=== PATIENT | female | born 1995 | race Caucasian/White ===

== ENCOUNTER 2017-01-21 05:21 | Emergency (ER) | payer BC, OTHER ==
[~2017-01-21] VITALS: Ht 162.6 cm; Wt 112.0 kg
[~2017-01-21 05:21] MED LIST: BCPILLS PO; PARO1TAB27 PO
[2017-01-21 05:24] VITALS: TEMP 36.7; Ht 162.6 cm; Wt 112.0 kg
[2017-01-21] MEDS ORDERED: ONDANSETRON INJ 2 MG/ML 2 ML VIAL IV STA (05:36)
[2017-01-21] MEDS ORDERED: ALBUT/IPRATROP 3MG/0.5MG NEB 3 ML VIAL INH STA (05:36)
[2017-01-21] MEDS ORDERED: PARO10TA PO (05:53)
[2017-01-21] MEDS ORDERED: NAPR1TAB9 PO (05:53)
[2017-01-21] MEDS ORDERED: PXL/40 PO (05:53)
[2017-01-21] MEDS ORDERED: ACET-1256 PO (05:53)
[2017-01-21 06:08] LABS: BASO % 0.4 %; BASO ABS # 0.03 K/uL (0-0.2); COMPLETE YES; EOS % 6.4 %; HEMATOCRIT 41.8 % (37-47); IG% 0.1 %; LYMPH % 33.1 %; LYMPH ABS # 2.62 K/uL (1.2-3.4); MEAN CELL VOLUME 86.2 fL (80-100); MEAN CORPUSCULAR HEMOGLOBIN 29.1 pg (25-34); MEAN CORPUSCULAR HGB CONC 33.7 g/dl (32-36); MEAN PLATELET VOLUME 8.7 fL (7.4-10.4); MONO % 6.2 %; NEUT % 53.8 %; PLATELET COUNT 319 K/uL (130-400); RED BLOOD COUNT 4.85 M/uL (4.2-5.4); WHITE BLOOD COUNT 7.91 K/uL (4.8-10.8)
[2017-01-21 06:27] LABS: BLOOD UREA NITROGEN 11 mg/dl (7-18); BUN/CREATININE RATIO 12.4 (10-20); CALCIUM 9.1 mg/dl (8.5-10.1); CARBON DIOXIDE 27 mmol/L (21-32); CHLORIDE 107 mmol/L (98-107); CREATININE 0.87 mg/dl (0.60-1.20); GLUCOSE 107 mg/dl (70-99); POTASSIUM 3.7 mmol/L (3.5-5.1); SODIUM 142 mmol/L (136-145)
[2017-01-21 06:34] LABS: PREG INTERNAL NEGATIVE QC NEG CLEAR BACKGROUND; PREG INTERNAL POSITIVE QC POS CONTROL LINE
--- NOTE | 2017-01-21 06:45 | DIAGNOSTIC IMAGING REPORT ---
CHEST 2 VIEWS ROUTINE HISTORY: 21-year-old female presents with cough, chest pain, shortness of breath and dizziness. COMPARISON: Portable chest radiograph 01/25/2016. TECHNIQUE: Frontal and lateral views of the chest. FINDINGS: Cardiomediastinal and hilar silhouettes are within normal limits. There is no pneumothorax, pleural effusion or focal airspace consolidation. The bones are grossly intact. IMPRESSION: No acute cardiopulmonary process. Electronically signed by: Clayton Banegas 01/21/2017 6:43 AM Dictated Date/Time: 01/21/2017 6:42 AM
--- NOTE | 2017-01-21 07:08 | EMERGENCY ROOM VISIT NOTE ---
History First contact with patient: 05:31 Chief Complaint: COUGH Stated Complaint: COUGH Nursing Triage Summary: Pt states she developed a cough January 18. Noted worsening bilateral rib and midsternal CP this morning. History of Present Illness The patient is a 21 year old female who presents to the Emergency Room with complaints of chest pain. The patient states that she has a history of asthma and has had a cough for the past 3 days. Today, the patient developed pain in the back of her ribs in the center of her chest. She is days it is a burning pain and she has associated vomiting. She has had a headache associated with a cough. She used her Ventolin inhaler without relief. She rates her discomfort a 4/10. She denies aggravating or alleviating factors. She denies any cardiac history or history of blood clots. She does not smoke. Review of Systems A complete 10 point review of systems was reviewed with the patient with pertinent positives and negatives as per history of present illness. All else were negative. Past Medical/Surgical History Medical Problems: (1) Asthma exacerbation Family History Patient reports no known family medical history. Social History Smoking Status: Never Smoker Drug Use: none Marital Status: single Current/Historical Medications Scheduled Control Pills ( Control Pills), 1 TAB PO QPM Paroxetine (Paxil), 40 MG PO DAILY Paroxetine Hcl (Paxil), 10 MG PO DAILY Scheduled PRN Acetaminophen (Tylenol), 1,000 MG PO DIRECTED PRN for Pain or Fever Naproxen (Aleve), 220 MG PO DIRECTED PRN for Pain Allergies Coded Allergies: No Known Allergies (Unverified , 01/21/17) Physical Exam Vital Signs Date Time Temp Pulse Resp B/P (MAP) Pulse Ox O2 Delivery O2 Flow Rate FiO2 01/21/17 07:26 84 16 138/94 98 01/21/17 06:04 87 18 126/97 96 Room Air 01/21/17 05:31 98 Room Air 01/21/17 05:27 86 01/21/17 05:24 36.7 90 20 138/98 98 Room Air Physical Exam VITALS: Vitals are noted on the nurse's note and reviewed by myself. Vital signs stable. GENERAL: This is a 21-year-old female, in no acute distress, nondiaphoretic, well-developed well-nourished. HEENT: Normocephalic. PERRLA. EOMI. Nares patent. Mucous membranes moist. Neck is supple without nuchal rigidity. HEART: Regular rate and rhythm without murmurs gallops or rubs. LUNGS: Clear to auscultation bilaterally without wheezes, rales or rhonchi. No retractions or accessory muscle use. ABDOMEN: Positive bowel sounds x 4. Soft, nontender to palpation. CHEST: No reproducible tenderness. NEURO: Patient was alert and oriented to person place and time. Medical Decision & Procedures ER Provider Diagnostic Interpretation: CHEST 2 VIEWS ROUTINE FINDINGS: Cardiomediastinal and hilar silhouettes are within normal limits. There is no pneumothorax, pleural effusion or focal airspace consolidation. The bones are grossly intact. IMPRESSION: No acute cardiopulmonary process. Laboratory Results 01/21/17 05:55 Red Blood Count 4.85, Mean Corpuscular Volume 86.2, Mean Corpuscular Hemoglobin 29.1, Mean Corpuscular Hemoglobin Concent 33.7, Mean Platelet Volume 8.7, Neutrophils (%) (Auto) 53.8, Lymphocytes (%) (Auto) 33.1, Monocytes (%) (Auto) 6.2, Eosinophils (%) (Auto) 6.4, Basophils (%) (Auto) 0.4, Neutrophils # (Auto) 4.25, Lymphocytes # (Auto) 2.62, Monocytes # (Auto) 0.49, Eosinophils # (Auto) 0.51, Basophils # (Auto) 0.03 01/21/17 05:55 Test 01/21/17 05:55 White Blood Count 7.91 K/uL (4.8-10.8) Red Blood Count 4.85 M/uL (4.2-5.4) Hemoglobin 14.1 g/dL (12.0-16.0) Hematocrit 41.8 % (37-47) Mean Corpuscular Volume 86.2 fL (80-100) Mean Corpuscular Hemoglobin 29.1 pg (25-34) Mean Corpuscular Hemoglobin Concent 33.7 g/dl (32-36) Platelet Count 319 K/uL (130-400) Mean Platelet Volume 8.7 fL (7.4-10.4) Neutrophils (%) (Auto) 53.8 % Lymphocytes (%) (Auto) 33.1 % Monocytes (%) (Auto) 6.2 % Eosinophils (%) (Auto) 6.4 % Basophils (%) (Auto) 0.4 % Neutrophils # (Auto) 4.25 K/uL (1.4-6.5) Lymphocytes # (Auto) 2.62 K/uL (1.2-3.4) Monocytes # (Auto) 0.49 K/uL (0.11-0.59) Eosinophils # (Auto) 0.51 K/uL (0-0.5) Basophils # (Auto) 0.03 K/uL (0-0.2) RDW Standard Deviation 41.2 fL (36.4-46.3) RDW Coefficient of Variation 12.9 % (11.5-14.5) Immature Granulocyte % (Auto) 0.1 % Immature Granulocyte # (Auto) 0.01 K/uL (0.00-0.02) D-Dimer 390 ug/L FEU (0-500) Anion Gap 8.0 mmol/L (3-11) Est Creatinine Clear Calc Drug Dose 125.4 ml/min Estimated GFR () 110.4 Estimated GFR (Non- 95.2 BUN/Creatinine Ratio 12.4 (10-20) Calcium Level 9.1 mg/dl (8.5-10.1) Troponin I < 0.015 ng/ml (0-0.045) Human Chorionic Gonadotropin, Qual NEG (NEG) Medications Administered Medications (Trade) Dose Ordered Sig/Wenceslao Route Start Time Stop Time Status Last Admin Dose Admin Albuterol/ Ipratropium (Duoneb) 3 ml NOW STAT INH 01/21/17 05:36 01/21/17 05:39 DC 01/21/17 05:43 3 ML Ondansetron HCl (Zofran Inj) 4 mg NOW STAT IV 01/21/17 05:36 01/21/17 05:39 DC 01/21/17 06:03 4 MG ECG Rate (beats per minute): 77 Rhythm: normal sinus Findings: no acute ischemic change, no ectopy Comparison ECG Date: no prior available ED Course The patient was evaluated as above. Labs were drawn and IV access was obtained. Patient was medicated with 4 mg Zofran and a DuoNeb treatment. Chest x-ray was performed and read by radiology as above. Patient was reevaluated and felt better. Findings were discussed with the patient. Discharge instructions were reviewed with the patient. The patient verbalized understanding of my assessment and treatment plan and was discharged home in good condition. Medical Decision Differential diagnosis includes pneumonia, pulmonary embolism, upper respiratory infection, asthma exacerbation, among others. The patient is a 21-year-old female who presents today complaining of cough and substernal chest pain. Labs revealed no leukocytosis or anemia. No concerning electrolyte abnormalities. Troponin and d-dimer were both negative. EKG shows a normal sinus rhythm without ischemia or ectopy. Chest x-ray present for further repair radiology with no acute findings. The patient is likely having an asthma exacerbation or upper respiratory infection. There is nothing to suggest a bacterial infection which would require antibiotic treatment. The patient was reassured. She did state that she felt very anxious because she googled her symptoms and thought she might be having a heart attack. She was instructed to follow-up with her primary care provider regarding today's visit. She should return here for worsening symptoms. Based on the patient's presentation and work up, I feel the patient is stable for outpatient treatment. The patient was educated to return to the emergency department for any worsening of their current condition or new/concerning symptoms. She will follow up with her PCP. Medication reconciliation: I attest that I have personally reviewed the patient 's current medication list. Blood Pressure Screening: Patient was found to have a slightly elevated blood pressure due to circumstances. I do not believe that the patient requires hypertension monitoring. Impression Primary Impression: Cough Additional Impression: Substernal chest pain Departure Information Dispostion Home / Self-Care Condition GOOD Referrals No Doctor, Assigned (PCP) Patient Instructions My [facility] Additional Instructions For pain control, you can use the following [id number] medicines (if >12 yo): - Regular strength (325mg/tab) Tylenol (acetaminophen) 2 tabs every 4-6 hours as needed. Do not exceed 12 tablets in a 24 hour period. Avoid taking more than 4 grams (4000 mg) of Tylenol per day. This includes any other sources of acetaminophen you may take on a regular basis. - Regular strength (200 mg/tab) Advil (ibuprofen) 1-2 tabs every 4-6 hours as needed. Do not exceed a dose of 3200 mg per day. Use your Ventolin inhaler as needed for cough/shortness of breath. Follow-up with your primary care provider within 48 hours. Return to the emergency with any worsening or new/concerning symptoms. Problem Qualifiers
[2017-01-21 07:26] VITALS: BP 138/94; PULSE 84; O2SAT 98
== END 2017-01-21 07:27 | disposition home or self-care (01) ==
LOC: EDBD 05:21 → C.EDB 05:23
DX: R07.2 Precordial pain (principal); R05 Cough; J45.909 Unspecified asthma, uncomplicated; Z79.899 Other long term (current) drug therapy